=== PATIENT | male | born 1940 | race Caucasian/White ===

== ENCOUNTER 2017-06-15 15:07 | Outpatient (CLI) | payer OTHER ==
--- NOTE | 2017-06-15 16:12 | RAD ---
CHEST TWO VIEW 06/15/17 HISTORY: Dyspnea. COMPARISON: Chest two view 11/03/16. FINDINGS: Mild chronic pleural and parenchymal changes lung bases. No pneumothorax. No large effusion. No acute osseous abnormalities. Mild degenerative disease of the right glenohumeral joint. IMPRESSION: 1. Chronic findings. No acute abnormality. 2. Compression fracture of the lumbar spine, incompletely evaluated. POS: [facility]
== END 2017-06-15 15:08 | disposition home or self-care (01) ==
LOC: RAD 15:07
PROVIDERS: ATTEND Internal Medicine Pulmonary Disease
DX: R06.00 Dyspnea, unspecified (principal); M48.56XA Collapsed vertebra, not elsewhere classified, lumbar region, initial encounter for fracture
CPT/HCPCS: 71046

== ENCOUNTER 2019-05-11 12:48 | Outpatient (CLI) | payer OTHER ==
--- NOTE | 2019-05-11 15:51 | PET ---
Nuclear medicine FDG PET/CT: (Positron emission tomography and computed tomography) DATE: 05/11/2019 HISTORY: 78-year-old male with solitary pulmonary nodule COMPARISON: 11/17/2016 TECHNIQUE: IV injection of F-18 fluorodeoxyglucose (FDG) dose: 15.5 mCi. PET scan and attenuation correction CT performed from skull base to proximal thighs. FINDINGS: SUV (standard uptake values) numbers given are maximum SUVs. QCLR used. In the apical segment of the left upper lobe, the spiculated lesion mentioned in the outside CT repor t from [facility] is unchanged in size and morphology since 2017, and remains nonhypermetabolic, with SUV of 1.5. Multifocal hypermetabolic foci in the left renal upper, mid, and lower pole parenchyma, nonspecific. The greatest uptake is in the left upper pole with SUV of 16.0. These are nonspecific, and new since prior study. These are not visible on as any discrete mass on the noncontrast CT images. The no ncontrast CT appearance of the kidneys is unchanged since the prior CT. Heavy atherosclerotic callus location of LAD. There is otherwise no suspicious hypermetabolic lesion in the neck, chest, abdomen, or pelvis. Bilateral L5 pars interarticularis defects. Grade 1 anterolisthesis of L5 on S1. High-grade degenerat lavonne disc disease at L5-S1. IMPRESSION: 1) left upper lobe, apical segment pulmonary scar is stable since 2017, with no evidence of malignant transformation. 2) nonspecific finding of multiple foci of high FDG uptake in the left renal parenchyma. Possibilitie s include pyelonephritis, primary renal cell carcinoma, and nonpathological uptake. Consider MRI of kidneys with and without contrast. 3) otherwise no evidence of metastatic disease. 4) coronary atherosclerosis due to calcified coronary lesion. 5) grade 1 spondylolisthesis at L5-S1 due to bilateral L5 spondylolysis. Associated degenerative disc disease at L5-S1.
== END 2019-05-11 12:49 | disposition home or self-care (01) ==
LOC: PET 12:48
PROVIDERS: ATTEND Internal Medicine Pulmonary Disease
DX: R91.1 Solitary pulmonary nodule (principal); I25.10 Atherosclerotic heart disease of native coronary artery without angina pectoris; M43.17 Spondylolisthesis, lumbosacral region; M47.816 Spondylosis without myelopathy or radiculopathy, lumbar region; M51.37 Other intervertebral disc degeneration, lumbosacral region; J98.4 Other disorders of lung
CPT/HCPCS: 78815; A9552